=== PATIENT | male | born 1975 | race Caucasian/White ===

== ENCOUNTER 2023-12-01 04:41 | Emergency (ER) | payer BC, OTHER ==
[2023-12-01] MEDS ORDERED: Sodium Chloride 0.9% 10 ML Syringe FLUSH PRN (05:16)
[2023-12-01] MEDS: Iopamidol 612 MG/ML 100 ML Bottle IVPUSH ONE (05:26)
== END 2023-12-01 05:58 | disposition left against medical advice (07) ==
LOC: JD.ED 04:41
DX: K59.00 Constipation, unspecified (principal)
CPT/HCPCS: 74177; 74177-26; 99283; 99284; Q9967